=== PATIENT | male | born 1975 | race Caucasian/White ===

== ENCOUNTER 2017-02-12 13:24 | Emergency (ER) | payer OTHER ==
[~2017-02-12] VITALS: Ht 182.9 cm; Wt 90.7 kg
[~2017-02-12 13:24] MED LIST: DIPH25CA PO; DOCU-67 PO; DULO60EC PO; GABA600T1 PO; METHACARBAMOL PO; ONDA4TAB PO; QUET300T1 PO; TIZA4TAB3 PO; VANCO IV; ZOLP10TA1 PO; [UNRECOGNIZED DRUG - CODE] PO; [UNRECOGNIZED DRUG - CODE] PO; [UNRECOGNIZED DRUG - CODE] PO; [UNRECOGNIZED DRUG - CODE] PO; [UNRECOGNIZED DRUG - CODE] PO
[2017-02-12 13:27] VITALS: BP 112/74
--- NOTE | 2017-02-12 14:34 | NUR ---
PATIENT TO BED 6 AT THIS TIME.
--- NOTE | 2017-02-12 15:00 | NUR ---
41M BIB SELF PRESENT TO ER C/O 03/20 "SHARP" INTERMITTENT RUQ & LUQ & EPIGASTRIC ABDOMINAL PAIN x TWO WEEKS WITH NAUSEA; DENIES V/D OR ANY URINARY COMPLAINTS; SKIN IS PINK/WARM/DRY; AAOX4; RR ARE EVEN AND UNLABORED; VSS; PATIENT POSITIONED FOR COMFORT; HOB ELEVATED; BEDRAILS UP X2; BED DOWN; ALL NEEDS MET AT THIS TIME; WILL CONTINUE TO MONITOR
[2017-02-12] MEDS ORDERED: NACL 0.9% 1,000 ML IV ONE (15:15)
[2017-02-12] MEDS ORDERED: HYDROmorphone 1 MG/ML AMP IVP ONE ×2 (15:15→17:15)
[2017-02-12 15:29] LABS: BASOPHILS # (AUTO) 0.2 K/uL (0.00-0.22); EOSINOPHILS # (AUTO) 0.3 K/uL (0-0.4); HEMATOCRIT 36.4 % (36-52); HEMOGLOBIN 11.8 g/dL (12.0-18.0); LYMPHOCYTES # (AUTO) 0.8 K/uL (2.0-11.5); MEAN CORPUSCULAR HEMOGLOBIN 30 pg (27-31); MEAN CORPUSCULAR HGB CONC 33 g/dL (33-37); MEAN CORPUSCULAR VOLUME 91 fL (80-94); MONOCYTES # (AUTO) 0.4 K/uL (0.8-1.0); NEUTROPHILS # (AUTO) 2.7 K/uL (1.8-7.7); PLATELET COUNT (AUTO) 155 K/uL (140-450); RED CELL DISTRIBUTION WIDTH 12.8 % (11.6-13.7); WHITE BLOOD COUNT (AUTO) 4.4 K/uL (4.8-10.8)
[2017-02-12 15:40] LABS: ANION GAP 8.6 (8-16); CARBON DIOXIDE 28.4 mmol/L (21-32)
[2017-02-12 15:46] LABS: ALBUMIN 3.3 g/dL (3.4-5.0); TOTAL BILIRUBIN 0.5 mg/dL (0.0-1.0)
--- NOTE | 2017-02-12 15:58 | NUR ---
PT TO CT VIA [facility] ACCOMPANIED WITH OPTOELECTRONIC TECHNICIAN
[2017-02-12 16:05] LABS: PROTHROMBIN TIME 11.2 secs (10.8-13.4)
[2017-02-12 17:40] VITALS: BP 109/61
--- NOTE | 2017-02-12 17:40 | NUR ---
Patient discharged with v/s stable. Written and verbal after care instructions given and explained; Patient alert, oriented and verbalized understanding of instructions. Ambulatory with steady gait and use of cane. Pt to ER ezra maier called for pt, ETA 20 minutes; All questions addressed prior to discharge. ID band removed. Patient advised to follow up with PMD. Rx of given. Patient educated on indication of medication including possible reaction and side effects. Opportunity to ask questions provided and answered.
== END 2017-02-12 17:40 | disposition home or self-care (01) ==
LOC: MED 13:24
DX: R10.13 Epigastric pain (principal)
CPT/HCPCS: 36415; 74176; 80053; 81002; 82150; 83690; 85025; 85610; 85730; 96361; 96374; 96376; 99285; J1170; J7030